=== PATIENT | female | born 1985 | race Caucasian/White ===

== ENCOUNTER 2017-07-02 21:23 | Emergency (ER) | payer OTHER ==
[~2017-07-02] VITALS: Ht 165.1 cm; Wt 108.9 kg
[2017-07-02 21:34] VITALS: BP 118/84
--- NOTE | 2017-07-02 22:10 | NUR ---
TO ER BED 6
--- NOTE | 2017-07-02 22:18 | NUR ---
31 Y/O F W/C/O LOW BACK PAIN X 1 MONTH, PT DENIES ANY INJURY. MED HX , GALL BLADDER/TONSILS REMOVED. PER PT SHE DOESNT TAKE ANY PAIN MEDICINE, PER PT SHE HAS NO PAIN UPON URINATION, SKIN WARM TO TOUCH RESP. EVEN AND UNLABORED, NO DISTRESS NOTED,6/10 BACK PAIN
--- NOTE | 2017-07-02 23:03 | NUR ---
DR. BEDOLLA AT BEDSIDE
[2017-07-02 23:36] VITALS: BP 112/79
--- NOTE | 2017-07-02 23:37 | NUR ---
Patient discharged with v/s stable. Written and verbal after care instructions given and explained. Patient alert, oriented and verbalized understanding of instructions. Ambulatory with steady gait. All questions addressed prior to discharge. ID band removed. Patient advised to follow up with PMD. Rx of FLEXERIL AND IBUPROFEN given. Patient educated on indication of medication including possible reaction and side effects. Opportunity to ask questions provided and answered.PER PT SHE HAS STILL PAIN BUT SHE WILL GET THE PRESCRIPTION, DOESNT NEED PAIN MEDS AT THIS TIME
== END 2017-07-02 23:36 | disposition home or self-care (01) ==
LOC: MED 21:23
DX: M54.5 Low back pain (principal); F12.90 Cannabis use, unspecified, uncomplicated; Z90.49 Acquired absence of other specified parts of digestive tract; Z90.89 Acquired absence of other organs
CPT/HCPCS: 81002; 81025; 99283